=== PATIENT | female | born 1980 | race Caucasian/White ===

== ENCOUNTER → 2018-07-13 12:14 | Outpatient (CLI) | payer MEDICAID ==
[2015-05-20 09:52] VITALS: BMI 38.9
[~2018-07-13 12:14] MED LIST: ACCURETIC 20-251 TAB PO; BACTRIM DS TABL1 TAB PO; CATAPRES0.1 MG PO; CLONAZEPAM2 MG/TAB PO; HYDROCODONE-APA1 TAB PO; INDERAL10 MG PO; MULTIPLE VITAMI1 TA1 PO; OMEGA 3 FISH OI1 CAP PO; PERCOCET 10/3251 TA1 PO; VITAMIN B-121000 MCG PO; VITAMIN C1000 MG; VOLTAREN75 MG PO; ZANAFLEX4 MG PO; ZOLOFT25 MG PO
== END | disposition home or self-care (01) ==
LOC: D.US 12:14
DX: R10.2 Pelvic and perineal pain (principal); N60.19 Diffuse cystic mastopathy of unspecified breast